=== PATIENT | male | born 1990 | race Caucasian/White ===

== ENCOUNTER 2017-02-15 17:22 | Emergency (ER) | payer OTHER ==
[~2017-02-15] VITALS: Ht 177.8 cm; Wt 77.8 kg
[~2017-02-15 17:22] MED LIST: [UNRECOGNIZED DRUG - REMARK] PO
[2017-02-15 17:29] VITALS: Ht 177.8 cm; Wt 77.8 kg
[2017-02-15] MEDS ORDERED: MoRPHine SULFATE 4 MG/ML 1 ML CARP\\VIAL IV STA ×2 (17:53→21:05)
[2017-02-15] MEDS ORDERED: ONDANSETRON 8 MG/54 ML D5W IV STA (17:53)
[2017-02-15] MEDS ORDERED: SODIUM CHLORIDE 0.9% 1000ML 1,000 ML IV STA (17:53)
[2017-02-15] MEDS ORDERED: OPTIRAY 320 IV PRN (18:00)
[2017-02-15] MEDS ORDERED: MoRPHine SULFATE 4 MG/ML 1 ML CARP\\VIAL IV PRN (18:00)
[2017-02-15 18:35] LABS: BASO % 0.1 %; BASO ABS # 0.01 K/uL (0-0.2); EOS % 0.1 %; EOS ABS # 0.01 K/uL (0-0.5); HEMATOCRIT 47.9 % (42-52); HEMOGLOBIN 16.6 g/dL (14.0-18.0); IG# 0.01 K/uL (0.00-0.02); LYMPH % 3.7 %; LYMPH ABS # 0.37 K/uL (1.2-3.4); MEAN CELL VOLUME 86.8 fL (80-100); MEAN CORPUSCULAR HEMOGLOBIN 30.1 pg (25-34); MEAN CORPUSCULAR HGB CONC 34.7 g/dl (32-36); MEAN PLATELET VOLUME 10.4 fL (7.4-10.4); MONO % 4.9 %; MONO ABS # 0.49 K/uL (0.11-0.59); NEUT % 91.1 %; PLATELET COUNT 185 K/uL (130-400); RED CELL DISTRIBUTION WIDTH CV 13.5 % (11.5-14.5); RED CELL DISTRIBUTION WIDTH SD 43.4 fL (36.4-46.3); WHITE BLOOD COUNT 9.99 K/uL (4.8-10.8)
[2017-02-15 18:56] LABS: ALBUMIN 4.4 gm/dl (3.4-5.0); CALCIUM 8.8 mg/dl (8.5-10.1); CREATININE 0.9 mg/dl (0.60-1.40); POTASSIUM 3.4 mmol/L (3.5-5.1)
[2017-02-15 18:59] LABS: TOTAL PROTEIN 7.6 gm/dl (6.4-8.2)
[2017-02-15 20:18] VITALS: TEMP 36.8
--- NOTE | 2017-02-15 20:43 | DIAGNOSTIC IMAGING REPORT ---
CT ABD/PELVIS IV AND ORAL CONT CLINICAL HISTORY: Right lower quadrant abdominal pain. Possible appendicitis. COMPARISON STUDY: None. TECHNIQUE: Following the IV administration of 115 mL of Optiray-320, CT scan of the abdomen and pelvis was performed from the lung bases to the proximal femurs. Images are reviewed in the axial, sagittal, and coronal planes. IV contrast was administered without complication. A dose lowering technique was utilized adhering to the principles of ALARA. CT DOSE: 352.05 mGy.cm FINDINGS: Lower chest: The heart is normal in size and configuration, without pericardial effusion. The lung bases and pleural spaces are clear. Liver: The contrast-enhanced liver is normal in size, contour, and attenuation. There is no intrahepatic biliary ductal dilatation. The hepatic veins and portal veins are patent. Gallbladder: Unremarkable. Spleen: Normal in size and attenuation. Pancreas: Unremarkable. Adrenal glands: Unremarkable. 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 There is no hydronephrosis. Bowel: The stomach is distended with contrast. There are no transition zone to indicate a high-grade bowel obstruction. There are scattered air-fluid levels present within the colon. The appendix is minimally dilated measuring 7 mm. The appendix contains both air and fluid. There are no significant periappendiceal inflammatory changes. This likely represents a normal variant. Close clinical follow-up is advocated Peritoneum: There is no intraperitoneal free air or abdominal ascites. This tiny fat-containing umbilical hernia. Vasculature: The abdominal aorta is normal in course and caliber. Adenopathy: None. Pelvic viscera: The bladder, and pelvic viscera are unremarkable. Skeletal structures: No destructive osseous lesions are seen. IMPRESSION: 1. Minimal appendiceal dilatation, but no evidence of wall thickening and no evidence of periappendiceal inflammation. The findings likely represent a normal variation. Close clinical follow-up is advocated given history of right lower quadrant abdominal pain. 2. Distended stomach. Multiple fluid-filled colon and small bowel loops with scattered air-fluid levels. The findings could be secondary to a gastroenteritis 3. No evidence of bowel obstruction. No evidence of free air Electronically signed by: iNno Yan M.D. 02/15/2017 8:41 PM Dictated Date/Time: 02/15/2017 8:35 PM
[2017-02-15] MEDS ORDERED: ONDANSETRON HOME PACK 4MG OD TAB PO ONE ×2 (21:00→23:00)
--- NOTE | 2017-02-15 22:37 | Medical Consult ---
Consultation Date of Consultation: Feb 15, 2017. Attending Physician: Reason for Consultation: abd pain History of Present Illness see consult from Alexis Hughes pt with recent upper resp illness- now abd pain, mostly RLQ and mid back pain nausea, no vomiting, wbc normal CT- dilated stomach and colon, some fluid filled small bowel, appendix nl size no thickening, gas within, not fluid filled- looks normal Past Medical/Surgical History Medical Problems: (1) Nausea and vomiting Status: Acute (2) Overdose of marijuana Status: Acute Social History Smoking Status: Never Smoker Allergies Coded Allergies: No Known Allergies (Unverified , 02/15/17) Current Inpatient Medications Current Inpatient Medications Medications (Trade) Dose Ordered Sig/Juana Route Start Time Stop Time Status Last Admin Dose Admin Morphine Sulfate (MoRPHine SULFATE INJ) 4 mg Q30M PRN IV 02/15/17 18:00 03/01/17 17:59 Ioversol (Optiray 320) 100 ml UD PRN IV 02/15/17 18:00 02/19/17 17:59 Physical Exam Date Time Temp Pulse Resp B/P (MAP) Pulse Ox O2 Delivery O2 Flow Rate FiO2 02/15/17 21:14 100 16 125/71 98 Room Air 02/15/17 20:18 36.8 102 18 119/68 99 Room Air 02/15/17 18:53 37.3 103 18 107/67 98 Room Air 02/15/17 17:29 37.1 113 16 118/68 98 Room Air Abdomen/GI: normal bowel sounds, soft, + tenderness (some diffuse tenderness and also RLQ- no peritoneal signs) Laboratory Results Last 24 Hours Test 02/15/17 18:20 White Blood Count 9.99 K/uL Red Blood Count 5.52 M/uL Hemoglobin 16.6 g/dL Hematocrit 47.9 % Mean Corpuscular Volume 86.8 fL Mean Corpuscular Hemoglobin 30.1 pg Mean Corpuscular Hemoglobin Concent 34.7 g/dl Platelet Count 185 K/uL Mean Platelet Volume 10.4 fL Neutrophils (%) (Auto) 91.1 % Lymphocytes (%) (Auto) 3.7 % Monocytes (%) (Auto) 4.9 % Eosinophils (%) (Auto) 0.1 % Basophils (%) (Auto) 0.1 % Neutrophils # (Auto) 9.10 K/uL Lymphocytes # (Auto) 0.37 K/uL Monocytes # (Auto) 0.49 K/uL Eosinophils # (Auto) 0.01 K/uL Basophils # (Auto) 0.01 K/uL RDW Standard Deviation 43.4 fL RDW Coefficient of Variation 13.5 % Immature Granulocyte % (Auto) 0.1 % Immature Granulocyte # (Auto) 0.01 K/uL Urine Color YELLOW Urine Appearance CLOUDY Urine pH 6.0 Urine Specific [place] 1.025 Urine Protein TRACE Urine Glucose (UA) NEG Urine Ketones TRACE Urine Occult Blood NEG Urine Nitrite NEG Urine Bilirubin NEG Urine Urobilinogen NEG Urine Leukocyte Esterase NEG Urine RBC 0-4 /hpf Urine WBC 1-5 /hpf Urine Epithelial Cells 5-10 /lpf Urine Amorphous Sediment PRESENT Urine Bacteria NEG Urine Mucus PRESENT Sodium Level 136 mmol/L Potassium Level 3.4 mmol/L Chloride Level 103 mmol/L Carbon Dioxide Level 26 mmol/L Anion Gap 7.0 mmol/L Blood Urea Nitrogen 14 mg/dl Creatinine 0.90 mg/dl Est Creatinine Clear Calc Drug Dose 130.7 ml/min Estimated GFR () 138.1 Estimated GFR (Non- 119.1 BUN/Creatinine Ratio 15.6 Random Glucose 96 mg/dl Calcium Level 8.8 mg/dl Total Bilirubin 1.2 mg/dl Direct Bilirubin 0.2 mg/dl Aspartate Amino Transf (AST/SGOT) 24 U/L Alanine Aminotransferase (ALT/SGPT) 43 U/L Alkaline Phosphatase 66 U/L Total Protein 7.6 gm/dl Albumin 4.4 gm/dl Lipase 85 U/L Assessment & Plan suspect gastroenteritis with no significant evidence of appendicitis on CT- can either monitor from home or adm to medical service and have possible GI evaluation
[2017-02-15] MEDS ORDERED: ONDA4TAB10 SL (22:45)
--- NOTE | 2017-02-15 22:45 | Medical Consult ---
Consultation Date of Consultation: Feb 15, 2017. Attending Physician: Reason for Consultation: RLQ pain History of Present Illness Patient presents to the ED due to RLQ pain that started this AM. He was seen by his PCP who sent him her for further workup for possible appendicitis. Rates his pain 4/10. States he has been mildly nauseated, but denies any vomiting. He has had diarrhea throughout the day as well. Reports feeling a little feverish and has felt a little weak with some pain in his back as well. FHx of appendicitis (mother). CT abd/pelvis shows Minimal appendiceal dilatation, but no evidence of wall thickening and no evidence of periappendiceal inflammation. He also has multiple fluid filled colon and small bowel loops present on CT likely indicating gastroenteritis. Denies any problems similar in the past. Past Medical/Surgical History Medical Problems: (1) Nausea and vomiting Status: Acute (2) Overdose of marijuana Status: Acute Social History Smoking Status: Never Smoker Allergies Coded Allergies: No Known Allergies (Unverified , 02/15/17) Current Inpatient Medications Current Inpatient Medications Medications (Trade) Dose Ordered Sig/Juana Route Start Time Stop Time Status Last Admin Dose Admin Morphine Sulfate (MoRPHine SULFATE INJ) 4 mg Q30M PRN IV 02/15/17 18:00 03/01/17 17:59 Ioversol (Optiray 320) 100 ml UD PRN IV 02/15/17 18:00 02/19/17 17:59 Review of Systems Constitutional: + fever, + chills Respiratory: No shortness of breath Abdomen: + pain (RLQ), + nausea, + diarrhea, No vomiting Physical Exam Date Time Temp Pulse Resp B/P (MAP) Pulse Ox O2 Delivery O2 Flow Rate FiO2 02/15/17 21:14 100 16 125/71 98 Room Air 02/15/17 20:18 36.8 102 18 119/68 99 Room Air 02/15/17 18:53 37.3 103 18 107/67 98 Room Air 02/15/17 17:29 37.1 113 16 118/68 98 Room Air Patient sitting up in bed talking with his family members in the room. He is accompanied by his , mother, father and brother. General Appearance: WD/WN, no apparent distress Head: normocephalic, atraumatic Respiratory/Chest: no respiratory distress, no accessory muscle use Abdomen/GI: normal bowel sounds, no organomegaly, no pulsatile mass, + tenderness (RLQ, hypogastic, periumbilical), + distended (mild) Neurologic/Psych: alert, normal mood/affect, oriented x 3 Laboratory Results Last 24 Hours Test 02/15/17 18:20 White Blood Count 9.99 K/uL Red Blood Count 5.52 M/uL Hemoglobin 16.6 g/dL Hematocrit 47.9 % Mean Corpuscular Volume 86.8 fL Mean Corpuscular Hemoglobin 30.1 pg Mean Corpuscular Hemoglobin Concent 34.7 g/dl Platelet Count 185 K/uL Mean Platelet Volume 10.4 fL Neutrophils (%) (Auto) 91.1 % Lymphocytes (%) (Auto) 3.7 % Monocytes (%) (Auto) 4.9 % Eosinophils (%) (Auto) 0.1 % Basophils (%) (Auto) 0.1 % Neutrophils # (Auto) 9.10 K/uL Lymphocytes # (Auto) 0.37 K/uL Monocytes # (Auto) 0.49 K/uL Eosinophils # (Auto) 0.01 K/uL Basophils # (Auto) 0.01 K/uL RDW Standard Deviation 43.4 fL RDW Coefficient of Variation 13.5 % Immature Granulocyte % (Auto) 0.1 % Immature Granulocyte # (Auto) 0.01 K/uL Urine Color YELLOW Urine Appearance CLOUDY Urine pH 6.0 Urine Specific [place] 1.025 Urine Protein TRACE Urine Glucose (UA) NEG Urine Ketones TRACE Urine Occult Blood NEG Urine Nitrite NEG Urine Bilirubin NEG Urine Urobilinogen NEG Urine Leukocyte Esterase NEG Urine RBC 0-4 /hpf Urine WBC 1-5 /hpf Urine Epithelial Cells 5-10 /lpf Urine Amorphous Sediment PRESENT Urine Bacteria NEG Urine Mucus PRESENT Sodium Level 136 mmol/L Potassium Level 3.4 mmol/L Chloride Level 103 mmol/L Carbon Dioxide Level 26 mmol/L Anion Gap 7.0 mmol/L Blood Urea Nitrogen 14 mg/dl Creatinine 0.90 mg/dl Est Creatinine Clear Calc Drug Dose 130.7 ml/min Estimated GFR () 138.1 Estimated GFR (Non- 119.1 BUN/Creatinine Ratio 15.6 Random Glucose 96 mg/dl Calcium Level 8.8 mg/dl Total Bilirubin 1.2 mg/dl Direct Bilirubin 0.2 mg/dl Aspartate Amino Transf (AST/SGOT) 24 U/L Alanine Aminotransferase (ALT/SGPT) 43 U/L Alkaline Phosphatase 66 U/L Total Protein 7.6 gm/dl Albumin 4.4 gm/dl Lipase 85 U/L Assessment & Plan RLQ pain, No evidence of acute appendicitis, multiple fluid filled loops of colon and small bowel possibly secondary to gastroenteritis. No surgical intervention indicated at this time. Source of pain most likely due to gastroenteritis. May consider Admitting on observation overnight per hospitalist team, but discharge with return precautions reasonable as well. Discussed findings with Dr. Awad and Romario Brown PA-C. Please contact with questions or concerns. pt examined- agree w/ above assessment- see my note for additional comment Dr Awad
[2017-02-15 23:02] VITALS: BP 122/59; PULSE 97; O2SAT 98
--- NOTE | 2017-02-16 00:17 | EMERGENCY ROOM VISIT NOTE ---
History First contact with patient: 17:41 Chief Complaint: ABDOMINAL PAIN Stated Complaint: ABD PAIN,REF BY DR TO CHECK FOR APPENDICITIS History of Present Illness The patient is a 26 year old male who presents to the Emergency Room with primary complaint of right lower abdominal and central back pain. The patient reports that he developed a cold 2 weeks ago. He reports that his sinus congestion and cough have been slowly improving over the past 2 weeks. When he awoke this morning around 6 AM, he had generalized right lower quadrant belly pain and back pain that has worsened throughout the day. The pain is worsened with movement and ambulation. He reports nausea without vomiting. The patient denies any increased or decreased urinary frequency, hematuria or flank pain. He denies any prior history of UTI or kidney stones. The patient denies any prior history of abdominal surgeries, and currently rates his discomfort a 7 out of 10. He does feel chilled but has not checked his temperature. He denies diarrhea or constipation. He also denies any recent bloody or mucus stools. Review of Systems HEENT: Denies dizziness, visual problems, hearing loss, tinnitus. Denies difficulty swallowing or oral lesions. PULMONARY: Denies cough, shortness of breath, sputum production or hemoptysis. CARDIOVASCULAR: Denies chest pain, palpitations, dyspnea on exertion, orthopnea or peripheral edema. GASTROINTESTINAL: See history of present illness. GENITOURINARY: Denies dysuria, frequency, urgency or nocturia. NEUROLOGIC: Denies history of epilepsy, CVA, TIA or chronic headaches. MUSCULOSKELETAL: Denies history of joint tenderness/swelling. SKIN: Denies rashes or lesions. PSYCHIATRIC: Denies history of depression or mental illness. ENDOCRINE: Denies history of diabetes or thyroid disordersn. Past Medical/Surgical History Medical Problems: (1) No significant past medical history Surgical Problems: (1) No history of previous surgery Family History Unremarkable Social History Smoking Status: Never Smoker Alcohol Use: occasionally Marital Status: Housing Status: lives with family Occupation Status: employed Current/Historical Medications Scheduled Ondasetron Odt (Zofran Odt), 4 MG SL Q6H Physical Exam Vital Signs Date Time Temp Pulse Resp B/P (MAP) Pulse Ox O2 Delivery O2 Flow Rate FiO2 02/15/17 23:02 97 20 122/59 98 02/15/17 21:14 100 16 125/71 98 Room Air 02/15/17 20:18 36.8 102 18 119/68 99 Room Air 02/15/17 18:53 37.3 103 18 107/67 98 Room Air 02/15/17 17:29 37.1 113 16 118/68 98 Room Air Physical Exam CONSTITUTIONAL: Healthy and well nourished. Alert and oriented X 3 with positive affect. Patient appears in moderate discomfort. HEENT: Normocephalic, atraumatic. Pupils equal, round and reactive. Ears and nares are clear. No rhinorrhea noted, serous/purulent effusion or TM perforation. OROPHARYNX: Minimal posterior pharyngeal erythema. No tonsillar hypertrophy or exudates. LYMPHATICS: No cervical chain adenopathy noted. NECK: Full active range of motion without discomfort. RESPIRATORY: Clear to auscultation bilaterally with no wheezing, crackles, rhonchi or stridor. CARDIOVASCULAR: Regular rate and rhythm with no murmurs, rubs or gallops. GASTROINTESTINAL: Bowel sounds present in all quadrants. Patient has a positive McBurney's point tenderness and positive Rovsing sign. Positive obturator sign. Positive heeltap. Negative CVA tenderness. No abdominal rigidity, guarding or rebound. MUSCULOSKELETAL: Full range of motion of all joints without discomfort. INTEGUMENTARY: No rash or other significant dermatologic conditions noted. HEMATOLOGIC: No ecchymosis or petechiae noted. NEUROLOGIC: No focal neurologic deficits noted. Medical Decision & Procedures ER Provider Diagnostic Interpretation: Enhanced CT of the abdomen and pelvis does not show any convincing evidence of acute appendicitis. Scattered air-fluid levels are noted within the bowel as well. Radiologist report is as follows: CT ABD/PELVIS IV AND ORAL CONT CLINICAL HISTORY: Right lower quadrant abdominal pain. Possible appendicitis. COMPARISON STUDY: None. TECHNIQUE: Following the IV administration of 115 mL of Optiray-320, CT scan of the abdomen and pelvis was performed from the lung bases to the proximal femurs. Images are reviewed in the axial, sagittal, and coronal planes. IV contrast was administered without complication. A dose lowering technique was utilized adhering to the principles of ALARA. CT DOSE: 352.05 mGy.cm FINDINGS: Lower chest: The heart is normal in size and configuration, without pericardial effusion. The lung bases and pleural spaces are clear. Liver: The contrast-enhanced liver is normal in size, contour, and attenuation. There is no intrahepatic biliary ductal dilatation. The hepatic veins and portal veins are patent. Gallbladder: Unremarkable. Spleen: Normal in size and attenuation. Pancreas: Unremarkable. Adrenal glands: Unremarkable. 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 There is no hydronephrosis. Bowel: The stomach is distended with contrast. There are no transition zone to indicate a high-grade bowel obstruction. There are scattered air-fluid levels present within the colon. The appendix is minimally dilated measuring 7 mm. The appendix contains both air and fluid. There are no significant periappendiceal inflammatory changes. This likely represents a normal variant. Close clinical follow-up is advocated Peritoneum: There is no intraperitoneal free air or abdominal ascites. This tiny fat-containing umbilical hernia. Vasculature: The abdominal aorta is normal in course and caliber. Adenopathy: None. Pelvic viscera: The bladder, and pelvic viscera are unremarkable. Skeletal structures: No destructive osseous lesions are seen. IMPRESSION: 1. Minimal appendiceal dilatation, but no evidence of wall thickening and no evidence of periappendiceal inflammation. The findings likely represent a normal variation. Close clinical follow-up is advocated given history of right lower quadrant abdominal pain. 2. Distended stomach. Multiple fluid-filled colon and small bowel loops with scattered air-fluid levels. The findings could be secondary to a gastroenteritis 3. No evidence of bowel obstruction. No evidence of free air Laboratory Results 02/15/17 18:20 Red Blood Count 5.52, Mean Corpuscular Volume 86.8, Mean Corpuscular Hemoglobin 30.1, Mean Corpuscular Hemoglobin Concent 34.7, Mean Platelet Volume 10.4, Neutrophils (%) (Auto) 91.1, Lymphocytes (%) (Auto) 3.7, Monocytes (%) (Auto) 4.9, Eosinophils (%) (Auto) 0.1, Basophils (%) (Auto) 0.1, Neutrophils # (Auto) 9.10, Lymphocytes # (Auto) 0.37, Monocytes # (Auto) 0.49, Eosinophils # (Auto) 0.01, Basophils # (Auto) 0.01 02/15/17 18:20 Test 02/15/17 18:20 White Blood Count 9.99 K/uL (4.8-10.8) Red Blood Count 5.52 M/uL (4.7-6.1) Hemoglobin 16.6 g/dL (14.0-18.0) Hematocrit 47.9 % (42-52) Mean Corpuscular Volume 86.8 fL (80-100) Mean Corpuscular Hemoglobin 30.1 pg (25-34) Mean Corpuscular Hemoglobin Concent 34.7 g/dl (32-36) Platelet Count 185 K/uL (130-400) Mean Platelet Volume 10.4 fL (7.4-10.4) Neutrophils (%) (Auto) 91.1 % Lymphocytes (%) (Auto) 3.7 % Monocytes (%) (Auto) 4.9 % Eosinophils (%) (Auto) 0.1 % Basophils (%) (Auto) 0.1 % Neutrophils # (Auto) 9.10 K/uL (1.4-6.5) Lymphocytes # (Auto) 0.37 K/uL (1.2-3.4) Monocytes # (Auto) 0.49 K/uL (0.11-0.59) Eosinophils # (Auto) 0.01 K/uL (0-0.5) Basophils # (Auto) 0.01 K/uL (0-0.2) RDW Standard Deviation 43.4 fL (36.4-46.3) RDW Coefficient of Variation 13.5 % (11.5-14.5) Immature Granulocyte % (Auto) 0.1 % Immature Granulocyte # (Auto) 0.01 K/uL (0.00-0.02) Urine Color YELLOW Urine Appearance CLOUDY (CLEAR) Urine pH 6.0 (4.5-7.5) Urine Specific [place] 1.025 (1.000-1.030) Urine Protein TRACE (NEG) Urine Glucose (UA) NEG (NEG) Urine Ketones TRACE (NEG) Urine Occult Blood NEG (NEG) Urine Nitrite NEG (NEG) Urine Bilirubin NEG (NEG) Urine Urobilinogen NEG (NEG) Urine Leukocyte Esterase NEG (NEG) Urine RBC 0-4 /hpf (0-4) Urine WBC 1-5 /hpf (0-5) Urine Epithelial Cells 5-10 /lpf (0-5) Urine Amorphous Sediment PRESENT (NONE PRSENT) Urine Bacteria NEG (NEG) Urine Mucus PRESENT (NONE PRSENT) Anion Gap 7.0 mmol/L (3-11) Est Creatinine Clear Calc Drug Dose 130.7 ml/min Estimated GFR () 138.1 Estimated GFR (Non- 119.1 BUN/Creatinine Ratio 15.6 (10-20) Calcium Level 8.8 mg/dl (8.5-10.1) Total Bilirubin 1.2 mg/dl (0.2-1) Direct Bilirubin 0.2 mg/dl (0-0.2) Aspartate Amino Transf (AST/SGOT) 24 U/L (15-37) Alanine Aminotransferase (ALT/SGPT) 43 U/L (12-78) Alkaline Phosphatase 66 U/L (45-117) Total Protein 7.6 gm/dl (6.4-8.2) Albumin 4.4 gm/dl (3.4-5.0) Lipase 85 U/L (73-393) The above labs were reviewed with no significant abnormalities. Medications Administered Medications (Trade) Dose Ordered Sig/Juana Route Start Time Stop Time Status Last Admin Dose Admin Sodium Chloride 1,000 ml @ 0 mls/hr Q0M STAT IV 02/15/17 17:53 02/15/17 17:57 DC 02/15/17 18:13 999 MLS/HR Ondansetron HCl (Zofran 8mg Iv) 8 mg NOW STAT IV 02/15/17 17:53 02/15/17 17:57 DC 02/15/17 18:13 8 MG Morphine Sulfate (MoRPHine SULFATE INJ) 4 mg NOW STAT IV 02/15/17 17:53 02/15/17 17:57 DC 02/15/17 18:14 4 MG Morphine Sulfate (MoRPHine SULFATE INJ) 4 mg NOW STAT IV 02/15/17 21:05 02/15/17 21:06 DC 02/15/17 21:11 4 MG Ondansetron HCl (ZOFRAN ODT 4MG Home Pack) 1 homepack UD ONCE PO 02/15/17 23:00 02/15/17 23:01 DC 02/15/17 22:56 1 HOMEPACK Procedure 1. IV hydration: The patient was hydrated with a normal saline 1 L bolus 2. IV medications: The patient was initially administered morphine 4 mg and Zofran 8 mg IVP. The patient was administered an additional morphine 4 mg IVP after returning from CT. ED Course Patient history and physical exam were performed. Nurse's notes were reviewed. Vital signs were reviewed. The patient is afebrile, but is tachycardic at a rate of 113 bpm. The patient is normotensive, and O2 saturation is normal. IV access was established, and labs were drawn. The patient was hydrated with normal saline, and received IV analgesics and antiemetics as discussed in the previous Procedure section. Review of labs shows no leukocytosis or other significant abnormalities. Enhanced CT of the abdomen and pelvis does not show any convincing evidence for acute appendicitis. Gastroenteritis is suggested with mild Y spread air-fluid levels without obstructive findings. The case was further discussed with Dr. Tamaoy, ED attending physician, who suggested consultation with general surgery. The case was further discussed with Dr. Awad who came to the emergency department to review CT studies and perform physical exam. Dr. Awad feels that the patient is at low risk for appendicitis at this time, but certainly encouraged to return to the emergency department for any progressively worsening symptoms. The case was further discussed with the patient, and he felt comfortable for discharge home. I did encourage him to follow up with his PCP within the next 24 hours for recheck, and certainly return to the emergency department for any progressively worsening pain, persistent vomiting or developing fever. Typical symptoms that accompany acute appendicitis were well briefed with the patient and family. Patient was provided a home pack and prescription for Zofran ODT. I encouraged limiting any opioid analgesics so as not to mask symptoms at this time. The patient was in agreement, was happy with plan of care, and rated his discomfort a 2 out of 10 at the time of discharge. Medical Decision See previous section. CT scan is not convincing for acute appendicitis at this time, although this is still early in disease progression. Gastroenteritis is suspected. Laboratory studies are not suggestive of pancreatitis, hepatitis, cholecystitis or UTI. Clinical exam does not suggest diverticulitis, peritonitis or pyelonephritis. [place] Drug Monitoring Program Search Results: patient reviewed within database, no issues identified Medication Reconcilliation Current Medication List: was personally reviewed by ak Blood Pressure Screening Patient's blood pressure: Normal blood pressure Impression Primary Impression: Abdominal pain, acute, right lower quadrant Additional Impression: Acute gastroenteritis Departure Information Prescriptions Ondasetron Odt (ZOFRAN ODT) 4 Mg Tab 4 MG SL Q6H for Nausea, #10 TAB Prov: Romario Brown PA 02/15/17 Referrals Gary Nicole M.D. (PCP) Patient Instructions My [facility] Problem Qualifiers
== END 2017-02-15 23:03 | disposition home or self-care (01) ==
LOC: C.EDB 17:26 → C.EDC 23:03
DX: R10.31 Right lower quadrant pain (principal); K52.9 Noninfective gastroenteritis and colitis, unspecified